=== PATIENT | female | born 1975 | race Two or more races ===

== ENCOUNTER 2020-06-30 06:57 | Day surgery (SDC) | payer OTHER ==
[~2020-06-30 06:57] MED LIST: ADULT ASPIRIN81 MG PO; CLARITIN10 MG/TAB PO; CLONAZEP PO; PRENATAL TABLET1 TA1 PO; SINGULAIR10 MG PO; ZYR PO
[2020-06-30] MEDS ORDERED: PERCOCET 5-3251 EACH PO (10:58)
== END 2020-06-30 13:41 | disposition home or self-care (01) ==
LOC: CIR.AMB 06:57
PROVIDERS: ATTEND Obstetrics & Gynecology Gynecology
DX: Z30.2 Encounter for sterilization (principal); Z20.822 Contact with and (suspected) exposure to COVID-19

== ENCOUNTER 2020-12-12 09:21 | Day surgery (SDC) | payer OTHER ==
[~2020-12-12 09:21] MED LIST changes: +PERCOCET 5-3251 EACH PO
== END 2020-12-12 15:00 | disposition home or self-care (01) ==
LOC: AMB-ENDOS 09:21
PROVIDERS: ATTEND Colon & Rectal Surgery
DX: K62.89 Other specified diseases of anus and rectum (principal); K64.1 Second degree hemorrhoids; Z20.822 Contact with and (suspected) exposure to COVID-19

== ENCOUNTER 2022-04-14 09:30 | Inpatient (IN) | payer OTHER ==
[~2022-04-14] VITALS: Ht 162.6 cm; Wt 72.6 kg
[2022-04-22] MEDS ORDERED: FLONASE16 GM (10:55)
[2022-04-22] MEDS ORDERED: MONTELUKAST SOD10 MG (10:55)
[2022-04-22] MEDS ORDERED: ZYRTEC10 M3 (10:56)
[2022-04-22] MEDS ORDERED: PROBIOTIC1 EAC4 (10:57)
[2022-04-22] MEDS ORDERED: MECLIZINE HCL25 MG (10:57)
[2022-04-22] MEDS ORDERED: HYOSCYAMINE0.125 MG (11:02)
== END 2022-04-22 18:23 | disposition home or self-care (01) | DRG 330 ==
LOC: SURH 04-20 05:28 → O/R 04-20 05:28 → SURG 04-20 09:30 → SURH 04-20 10:07 → SURG 04-20 14:30 → SURH 04-22 18:23
PROVIDERS: ADMIT Colon & Rectal Surgery; ATTEND Colon & Rectal Surgery
PROC: 0DBP4ZZ Excision of Rectum, Percutaneous Endoscopic Approach (ICD-10-PCS; 2022-04-20)
PROC: 0DJD8ZZ Inspection of Lower Intestinal Tract, Via Natural or Artificial Opening Endoscopic (ICD-10-PCS; 2022-04-20)
PROC: 3E0F7GC Introduction of Other Therapeutic Substance into Respiratory Tract, Via Natural or Artificial Opening (ICD-10-PCS; 2022-04-20)
PROC: 0DTN4ZZ Resection of Sigmoid Colon, Percutaneous Endoscopic Approach (ICD-10-PCS; principal; 2022-04-20 14:30)
DX: K57.30 Diverticulosis of large intestine without perforation or abscess without bleeding (principal); K92.1 Melena; K64.0 First degree hemorrhoids; K58.9 Irritable bowel syndrome, unspecified; J45.20 Mild intermittent asthma, uncomplicated